=== PATIENT | male | born 1970 | race Two or more races ===

== ENCOUNTER 2018-10-08 14:40 | Emergency (ER) | payer OTHER ==
[~2018-10-08] VITALS: Ht 172.7 cm; Wt 82.1 kg
[2018-10-08 15:21] VITALS: BP 150/88
--- NOTE | 2018-10-08 15:21 | NUR ---
CAME IN FOR L BUTTOCK AREA ABSCESS. TO ER BED 2, HOOKED TO MONITOR, CHANGED TO GOWN, PROVIDED W WARM BLANKET, PT AOX4, AWAITING MD [place]
== END 2018-10-08 15:50 | disposition home or self-care (01) ==
LOC: ER 14:44
DX: L03.115 Cellulitis of right lower limb (principal); L02.415 Cutaneous abscess of right lower limb; I10 Essential (primary) hypertension; Q24.9 Congenital malformation of heart, unspecified; Z86.73 Personal history of transient ischemic attack (TIA), and cerebral infarction without residual deficits

== ENCOUNTER 2018-10-30 13:53 | Emergency (ER) | payer OTHER ==
[~2018-10-30] VITALS: Ht 172.7 cm; Wt 79.4 kg
[2018-10-30 14:00] VITALS: BP 140/91
== END 2018-10-30 15:57 | disposition home or self-care (01) ==
LOC: ER 14:00
DX: J18.9 Pneumonia, unspecified organism (principal); I10 Essential (primary) hypertension; Q24.9 Congenital malformation of heart, unspecified; Z86.73 Personal history of transient ischemic attack (TIA), and cerebral infarction without residual deficits
CPT/HCPCS: 71045-TC